=== PATIENT | female | born 1980 | race Hispanic/Latino ===

== ENCOUNTER → 2025-01-14 | Outpatient (CLI) | payer OTHER | END | disposition home or self-care (01) | LOC: RAH 13:51 | PROVIDERS: ATTEND Internal Medicine Cardiovascular Disease | DX: I07.1 Rheumatic tricuspid insufficiency (principal); I10 Essential (primary) hypertension; R94.31 Abnormal electrocardiogram [ECG] [EKG] | CPT/HCPCS: 93306 ==